=== PATIENT | male | born 2000 | race Hispanic/Latino ===

== ENCOUNTER 2019-12-16 22:04 | Emergency (ER) | payer OTHER ==
[2019-12-16] MEDS ORDERED: ACETAMINOPHEN 325 MG TAB ONE (23:06)
[2019-12-16 23:32] LABS: APPEARANCE,URINE Clear (CLEAR); BILIRUBIN,URINE Negative (NEGATIVE); COLOR,URINE Yellow (YELLOW); GLUCOSE, URINE (UA) Negative (NEGATIVE); KETONES,URINE Negative (NEGATIVE); LEUKOCYTE ESTERASE ,URINE Negative (NEGATIVE); NITRATE,URINE Negative (NEGATIVE); OCCULT BLOOD,URINE Negative (NEGATIVE); PROTEIN,URINE Negative (NEGATIVE)
[2019-12-17] MEDS ORDERED: DICYCLOMINE HCL 20 MG TAB ONE (00:02)
[2019-12-17] MEDS ORDERED: LACTULOSE 20 GM/30 ML UDCUP ONE (00:02)
== END 2019-12-17 00:35 | disposition home or self-care (01) ==
LOC: EDBD 22:04 → EDH 22:04
DX: K59.00 Constipation, unspecified (principal); Z87.891 Personal history of nicotine dependence; Z88.0 Allergy status to penicillin
CPT/HCPCS: 81003